=== PATIENT | female | born 2000 | race Caucasian/White ===

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

== ENCOUNTER 2019-02-02 08:27 | Emergency (ER) | payer OTHER ==
[2019-02-02 08:35] VITALS: BP 104/61; PULSE 96; TEMP 99.4; BMI 24.7
[2019-02-02] MEDS ORDERED: DEXAMETHASONE SOD PHOSPHATE 10 MG/1 ML VIAL IM ONE (09:13)
[2019-02-02] MEDS ORDERED: DEXAMETHASONE SOD PHOSPHATE 10 MG/1 ML VIAL ONE (09:15)
--- NOTE | 2019-02-02 09:16 | PDOC ---
History of Present Illness - General Chief Complaint: Sore Throat Stated Complaint: SORE THROAT/COLD SYMPTOMS Time Seen by Provider: 02/02/19 08:38 History Source: Patient Exam Limitations: No Limitations (sorethroat X 4 days) - History of Present Illness Associated Symptoms: denies: cough, fever/chills, nausea/vomiting Past History - Travel Traveled outside of the country in the last 30 days: No Close contact w/someone who was outside of country & ill: No - Past Medical History Allergies/Adverse Reactions: Allergies Allergy/AdvReac Type Severity Reaction Status Date / Time No Known Allergies Allergy Verified 02/02/19 09:11 Home Medications: Ambulatory Orders NK [No Known Home Medication] 02/02/19 Asthma: No Cancer: No Cardiac Disorders: No COPD: No Diabetes: No HTN: No Seizures: No Thyroid Disease: No - Immunization History Immunization Up to Date: Yes - Psycho Social/Smoking Cessation Hx Smoking History: Never smoked Have you smoked in the past 12 months: No Hx Alcohol Use: No Drug/Substance Use Hx: No Substance Use Type: None Hx Substance Use Treatment: No Review of Systems - Review of Systems Constitutional: No: Chills, Fever HEENTM: Yes: Throat Pain, Throat Swelling, Difficulty Swallowing. 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 Patient denies any drooling fever chills no sick contacts at home. Exam consistent with tonsillar swelling with with cervical lymphadenopathy there is no evidence of SENIOR ONLINE MARKETING MANAGER or pooling of saliva. Her voice is intact. Rapid strep sent and is pending we will give dexamethasone for discomfort, disposition pending 02/02/19 10:35 Rapid strep was negative Discharge - Discharge Information Problems reviewed: Yes Clinical Impression/Diagnosis: Sorethroat Condition: Stable Disposition: HOME - Additional Discharge Information Prescription Drug Monitoring Program (I-STOP) results: I-STOP not reviewed - Follow up/Referral Referrals: Jacobo Rosas MD [Primary Care Provider] - - Patient Discharge Instructions Patient Printed Discharge Instructions: Strep Throat Additional Instructions: Your rapid strep was negative for strep today. Throat culture was sent out for further evaluation if there is any positive finding you will be contacted for antibiotic. Please take Motrin gargle with salt warm water. Return to the emergency room if worsening pain swelling drooling occurs Otherwise follow-up with your primary care doctor - Post Discharge Activity
== END 2019-02-02 10:53 | disposition home or self-care (01) ==
LOC: JERFT 08:27
PROC: 3E0233Z Introduction of Anti-inflammatory into Muscle, Percutaneous Approach (ICD-10-PCS; principal; 2019-02-02)
DX: J02.9 Acute pharyngitis, unspecified (principal)
CPT/HCPCS: 87070; 87880; 99281-25; J1100

== ENCOUNTER 2019-05-20 12:29 | Emergency (ER) | payer OTHER ==
[2019-05-20 12:37] VITALS: BP 119/60; PULSE 118; TEMP 99.4; BMI 26.3
[2019-05-20] MEDS ORDERED: ACETAMINOPHEN 500 MG TABLET (FP) PO ONE (13:55)
[2019-05-20] MEDS ORDERED: SODIUM CHLORIDE 0.9% 500 ML INFUS.BAG IV ONE (13:56)
[2019-05-20] MEDS ORDERED: ACETAMINOPHEN 500 MG TABLET (FP) ONE (14:42)
[2019-05-20 15:23] LABS: EPI CELLS 1.3 /HPF (0-5/HPF); HYALINE CASTS 18 /lpf (0-8); URINE APPEARANCE CLEAR; URINE BACTERIA 8539.8 /hpf (NEGATIVE); URINE BILIRUBIN NEGATIVE (NEGATIVE); URINE COLOR YELLOW; URINE GLUCOSE (UA) NEGATIVE (NEGATIVE); URINE KETONE TRACE (NEGATIVE); URINE LEUK ESTERASE 2+ (NEGATIVE); URINE NITRITE POSITIVE (NEGATIVE); URINE PROTEIN 1+ (NEGATIVE); URINE RBC 6 /hpf (0-4); URINE WBC 94 /hpf (0-5)
[2019-05-20] MEDS ORDERED: CEFTRIAXONE 1,000 MG in DEXTROSE 5%-WATER - 50 ML IVPB ONE (15:25)
[2019-05-20] MEDS ORDERED: CEFTRIAXONE 1 GM/50 ML BAG ONE (15:39)
--- NOTE | 2019-05-20 16:02 | PDOC ---
History of Present Illness - General Chief Complaint: Pain Stated Complaint: LOWER BACK PAIN Time Seen by Provider: 05/20/19 13:37 - History of Present Illness Initial Comments: 05/20/19 15:59 18-year-old female without comorbidities presents for dysuria and back pain x3 days Past History - Past Medical History Allergies/Adverse Reactions: Allergies Allergy/AdvReac Type Severity Reaction Status Date / Time No Known Allergies Allergy Verified 05/20/19 12:38 Home Medications: Ambulatory Orders Nitrofurantoin Monohyd/M-Cryst [Macrobid -] 100 mg PO BID #14 capsule 05/20/19 Phenazopyridine HCl [Pyridium] 200 mg PO TID #6 tablet 05/20/19 Asthma: No Cancer: No Cardiac Disorders: No COPD: No Diabetes: No HTN: No Seizures: No Thyroid Disease: No - Immunization History Immunization Up to Date: Yes - Psycho Social/Smoking Cessation Hx Smoking History: Never smoked Have you smoked in the past 12 months: No Hx Alcohol Use: No Drug/Substance Use Hx: No Substance Use Type: None Hx Substance Use Treatment: No Review of Systems - Review of Systems Constitutional: No: Fever : Yes: Burning, Dysuria, Frequency, Flank Pain *Physical Exam - Vital Signs Last Vital Signs Temp Pulse Resp BP Pulse Ox 99.4 F 118 H 18 119/60 98 05/20/19 12:35 05/20/19 12:35 05/20/19 12:35 05/20/19 12:35 05/20/19 12:35 - Physical Exam 05/20/19 16:00 GENERAL: The patient is awake, alert, and fully oriented, in no acute distress. HEAD: Normal with no signs of trauma. EYES: sclera anicteric, conjunctiva clear. ENT: Ears normal tympanic membranes normal oropharynx clear uvula midline NECK: Normal range of motion LUNGS: Breath sounds equal, clear to auscultation bilaterally. No wheezes, and no crackles. HEART: S1 and S2 without murmur, rub or gallop. ABDOMEN: Soft, nontender, normoactive bowel sounds. No guarding, no rebound. No masses. EXTREMITIES: Normal range of motion, no edema. No clubbing or cyanosis. No cords, erythema, or tenderness. NEUROLOGICAL: Cranial nerves II through XII grossly intact. PSYCH: Normal mood, normal affect. SKIN: Warm, Dry, normal turgor, no rashes or lesions noted. ED Treatment Course - ADDITIONAL ORDERS Additional order review: Laboratory Results 05/20/19 05/20/19 14:44 14:44 Urine Color Yellow Urine Appearance Clear Urine pH 7.0 Ur Specific [place] 1.015 Urine Protein 1+ H Urine Glucose (UA) Negative Urine Ketones Trace H Urine Blood Trace Urine Nitrite Positive H Urine Bilirubin Negative Urine Urobilinogen 1.0 Ur Leukocyte Esterase 2+ H Urine WBC (Auto) 94 Urine RBC (Auto) 6 Urine Casts (Auto) 18 U Epithel Cells (Auto) 1.3 Urine Bacteria (Auto) 8539.8 Urine HCG, Qual Negative - Medications Given in the ED: ED Medications Discontinued Medications Generic Name Dose Route Start Last Admin Trade Name Leslee PRN Reason Stop Dose Admin Acetaminophen 1,000 mg 05/20/19 13:55 05/20/19 14:42 Tylenol - PO 05/20/19 13:56 1,000 mg ONCE ONE Administration Ceftriaxone Sodium 1,000 mg/ 50 mls @ 100 mls/hr 05/20/19 15:25 05/20/19 15: 44 Dextrose IVPB 05/20/19 15:54 100 mls/hr ONCE ONE Administration Sodium Chloride 1,000 ml 05/20/19 13:56 05/20/19 14:43 Normal Saline - IV 05/20/19 13:57 1,000 ml ONCE ONE Administration Medical Decision Making - Medical Decision Making 05/20/19 16:00 We will give initial dose of Rocephin here in the emergency room p.o. Macrobid at home follow-up with primary care physician Discharge - Discharge Information Problems reviewed: Yes Clinical Impression/Diagnosis: UTI (urinary tract infection) Condition: Stable Disposition: HOME - Admission No - Additional Discharge Information Prescriptions: Nitrofurantoin Monohyd/M-Cryst [Macrobid -] 100 mg PO BID #14 capsule - Follow up/Referral Referrals: Jacobo Rosas MD [Primary Care Provider] - - Patient Discharge Instructions Additional Instructions: You are being treated for a urinary tract infection. Please follow-up with your primary care physician without fail in 1 to 2 days for further evaluation and treatment options. Please take the antibiotics and finish the entire course as directed. You were given an initial dose of antibiotics in the emergency room today. Return to the emergency room for further issues or worsening symptoms. The urinary tract anesthetic Pyridium will turn your urine orange to reddish this is normal. - Post Discharge Activity
== END 2019-05-20 16:36 | disposition home or self-care (01) ==
LOC: JERFT 12:29
DX: N39.0 Urinary tract infection, site not specified (principal)
CPT/HCPCS: 81003; 84703; 87086; 87186; 96365; 99284-25

== ENCOUNTER 2020-10-26 17:14 | Emergency (ER) | payer OTHER ==
[2020-10-26 17:19] VITALS: BP 109/72; PULSE 60; TEMP 97.9; BMI 24.1
[2020-10-26 18:43] LABS: HCG,QUALITATIVE URINE Negative
[2020-10-26 18:44] LABS: EPI CELLS 5 /uL (0-25.1); HYALINE CASTS 1 /uL (0-3.1); URINE APPEARANCE CLEAR; URINE BACTERIA 2169 /uL (0-1359); URINE BILIRUBIN NEGATIVE (NEGATIVE); URINE COLOR YELLOW; URINE GLUCOSE (UA) NEGATIVE (NEGATIVE); URINE KETONE NEGATIVE (NEGATIVE); URINE LEUK ESTERASE 3+ (NEGATIVE); URINE NITRITE NEGATIVE (NEGATIVE); URINE PROTEIN NEGATIVE (NEGATIVE); URINE RBC 24 /uL (0-23.9); URINE UROBILINOGEN 0.2 mg/dL (0.2-1.0); URINE WBC 454 /uL (0-25.8)
== END 2020-10-26 19:05 | disposition home or self-care (01) ==
LOC: JER 17:14
DX: N39.0 Urinary tract infection, site not specified (principal)
CPT/HCPCS: 36415; 81003; 84703; 87086; 87186; 87491; 87591; 99283-25